=== PATIENT | male | born 2000 | race Caucasian/White ===

== ENCOUNTER 2020-05-29 09:32 | Emergency (ER) | payer BC, OTHER ==
[2020-05-29 09:41] VITALS: BP 121/67; PULSE 98; RESP 18; TEMP 98
[2020-05-29] MEDS ORDERED: IBUPROFEN 600 MG STARTER PACK 4 TAB BTL PO STA (10:25)
[2020-05-29] MEDS ORDERED: PENICILLIN VK 500MG STARTER 4 TAB BTL PO STA (10:25)
--- NOTE | 2020-05-29 10:27 | ED ---
General Adult HPI - General Source: patient Mode of arrival: ambulatory Limitations: no limitations <Isela Ocampo - Last Filed: 05/29/20 11:53> <Dawna Vasquez - Last Filed: 06/04/20 23:39> - General Chief complaint: Dental/Oral Stated complaint: dental pain Time Seen by Provider: 05/29/20 10:14 - History of Present Illness Initial comments: 19-year-old male patient presents to the emergency department today for evaluation of left upper dental pain. Patient states the symptoms started about a year ago. States he's had persistent left upper dental pain occasional bleeding from the gums around the tooth, and on-and-off facial swelling. Denies any current facial swelling. Has not seen a dentist for this. States that he was discussing with a coworker and they talked about possible dental abscess so he thought he should come get checked out for it. He denies any fever or chills. Denies nausea or vomiting. Denies any trismus or difficulty swallowing. (Isela Ocampo) - Related Data Previous Rx's Medication Instructions Recorded Penicillin V Potassium [Pen Vee K] 500 mg PO Q6H #40 tablet 05/29/20 Allergies Allergy/AdvReac Type Severity Reaction Status Date / Time No Known Allergies Allergy Verified 05/29/20 09:39 Review of Systems ROS Other: All systems not noted in ROS Statement are negative. <Isela Ocampo - Last Filed: 05/29/20 11:53> ROS Other: All systems not noted in ROS Statement are negative. <Dawna Vasquez - Last Filed: 06/04/20 23:39> ROS Statement: Those systems with pertinent positive or pertinent negative responses have been documented in the HPI. Past Medical History Past Medical History: No Reported History History of Any Multi-Drug Resistant Organisms: None Reported Past Surgical History: No Surgical Hx Reported Past Psychological History: PTSD Smoking Status: Vaper Past Alcohol Use History: None Reported Past Drug Use History: Marijuana <Isela Ocampo - Last Filed: 05/29/20 11:53> General Exam Limitations: no limitations General appearance: alert, in no apparent distress, other (Physical well- developed, well-nourished adult male patient in no acute distress. Vital signs upon presentation are temperature 98.0F, pulse 98, respirations 18, blood pressure 121/67, pulse ox 99% on room air.) ENT exam: Present: mucous membranes moist, other (There is cracked tooth #15. Surrounding gingival erythema. No evidence for drainable abscess.) Neck exam: Present: normal inspection. Absent: tenderness, meningismus, lymphadenopathy Respiratory exam: Present: normal lung sounds bilaterally. Absent: respiratory distress, wheezes, rales, rhonchi, stridor Cardiovascular Exam: Present: regular rate, normal rhythm, normal heart sounds. Absent: systolic murmur, diastolic murmur, rubs, gallop, clicks Neurological exam: Present: alert, oriented X3, CN II-XII intact Psychiatric exam: Present: normal affect, normal mood Skin exam: Present: warm, dry, intact, normal color. Absent: rash <Isela Ocampo - Last Filed: 05/29/20 11:53> Course Vital Signs 05/29/20 09:39 Temperature 98 F Pulse Rate 98 Respiratory 18 Rate Blood Pressure 121/67 O2 Sat by Pulse 99 Oximetry Medical Decision Making <Isela Ocampo - Last Filed: 05/29/20 11:53> <Dawna Vasquez - Last Filed: 06/04/20 23:39> - Medical Decision Making 19-year-old male patient presents to the emergency department today for evaluation of left upper dental pain. Physical examination did reveal cracked tooth #15 with surrounding gingival erythema and hyperplasia. Afebrile normal vitals. We'll give antibiotics for possible infection. Patient given PENVK due to having no insurance, this is free at [facility]. He is instructed follow up with dentistry as soon as possible. Return parameters were discussed in detail. He verbalizes understanding and agrees with this plan. Case discussed with Dr. Vasquez. (Isela Ocampo) I was available for consultation in the emergency department. The history and physical exam were done by the midlevel provider. I was consulted for this patients care. I reviewed the case with the midlevel provider and based on their presentation of the patient, I agree with the assessment, medical decision making and plan of care as documented. Chart was dictated using [employer] dictation software. Attempts were made to correct any dictation errors however some typographical errors may persist. (Dawna Vasquez) Disposition Is patient prescribed a controlled substance at d/c from ED?: No Time of Disposition: 10:27 <Isela Ocampo - Last Filed: 05/29/20 11:53> <Dawna Vasquez - Last Filed: 06/04/20 23:39> Clinical Impression: Pain, dental Disposition: HOME SELF-CARE Condition: Good Instructions (If sedation given, give patient instructions): Toothache (ED) Additional Instructions: All the dentist for recheck as soon as possible. Return to the emergency department for any new, worsening, or concerning symptoms. Please follow up with the [facility] dental clinic. [id number] [place] [address]. Phone number for new patients or [phone] for existing patients. [facility]. Must pay for x-rays then services are free. Call for an appoitnment. Prescriptions: Penicillin V Potassium [Pen Vee K] 500 mg PO Q6H #40 tablet Referrals: None,Stated [Primary Care Provider] - 1-2 days
== END 2020-05-29 10:43 | disposition home or self-care (01) ==
LOC: EC 09:32
DX: K08.89 Other specified disorders of teeth and supporting structures (principal); F17.200 Nicotine dependence, unspecified, uncomplicated
CPT/HCPCS: 99282

== ENCOUNTER 2020-06-06 13:32 | Emergency (ER) | payer OTHER ==
[2020-06-06 14:30] VITALS: TEMP 98.3
[2020-06-06 16:09] LABS: Appearance,Urine Clear (Clear); Basophils % (A) 0 %; Bilirubin,Urine Negative (Negative); Blood,Urine Negative (Negative); Color,Urine Light Yellow; Eosinophils # (A) 0.2 k/uL (0-0.7); Eosinophils % (A) 3 %; Glucose,Urine (UA) Negative (Negative); HCT 42.9 % (39.0-53.0); HGB 14.6 gm/dL (13.0-17.5); Ketones,Urine Negative (Negative); Leukocyte Esterase,Urine Negative (Negative); Lymphocytes # (A) 2.2 k/uL (1.0-4.8); Lymphocytes % (A) 29 %; MCH 30.1 pg (25.0-35.0); MCV 88.7 fL (80.0-100.0); Mean Platelet Volume 6.4; Monocytes # (A) 0.4 k/uL (0-1.0); Monocytes % (A) 6 %; Neutrophils # (A) 4.6 k/uL (1.3-7.7); Neutrophils % (A) 61 %; Nitrite,Urine Negative (Negative); Platelet Count 274 k/uL (150-450); Protein,Urine Negative (Negative); RBC 4.84 m/uL (4.30-5.90); RDW 12.4 % (11.5-15.5); Specific Gravity,Urine 1.019 (1.001-1.035); Urobilinogen,Urine <2.0 mg/dL (<2.0); WBC 7.5 k/uL (4.0-11.0)
[2020-06-06 16:18] LABS: ALT 14 U/L (4-49); AST 22 U/L (17-59); African American GFR (CKD) >90 (>60 ml/min/1.73 sqM); Alkaline Phosphatase 58 U/L (38-126); Amylase 47 U/L (30-110); Anion Gap 9 mmol/L; Blood Urea Nitrogen 15 mg/dL (9-20); Calcium 9.7 mg/dL (8.4-10.2); Carbon Dioxide 26 mmol/L (22-30); Chloride 104 mmol/L (98-107); Glucose 93 mg/dL (74-99); Lipase 38 U/L (23-300); Non-African American GFR(CKD) >90 (>60 ml/min/1.73 sqM); Potassium 4.3 mmol/L (3.5-5.1); Sodium 139 mmol/L (137-145); Total Bilirubin 0.6 mg/dL (0.2-1.3); Total Protein 7.6 g/dL (6.3-8.2)
--- NOTE | 2020-06-06 16:37 | US ---
EXAMINATION TYPE: US scrotum with doppler. DATE OF EXAM: 06/06/2020 COMPARISON: NONE CLINICAL HISTORY: 19-year-old male left testicular pain. Lower abdomen pain and left testicular pain x 1 day following heavy lifting TECHNIQUE: Grayscale and color Doppler Duplex imaging performed of the scrotum. FINDINGS: EXAM MEASUREMENTS: TESTICLES: Right Testicle: 4.1 x 2.2 x 2.7 cm Left Testicle: 4.5 x 2.1 x 2.8 cm Normal homogeneous appearance to the testicles. No hyperemia. Doppler performed to assess for testicu lar vascularity; good bilateral color flow and waveforms are seen. There is no evidence of testicul ar torsion. EPIDIDYMIS HEAD: Right Epididymis: 1.1 cm Left Epididymis: 1.3 cm Presence of hydroceles: no Presence of varicoceles: prominent vessels medial and superior to left testicle that increased with valsalva IMPRESSION: 1. No sonographic evidence for testicular torsion or epididymoorchitis. 2. No hydrocele. 3. Exam positive for left-sided scrotal varicoceles.
--- NOTE | 2020-06-06 16:38 | US ---
EXAMINATION TYPE: US groin LT DATE OF EXAM: 06/06/2020 COMPARISON: NONE CLINICAL HISTORY: 19-year-old male pain. Lower abdomen and left testicular pain x 1 day following hea vy lifting TECHNIQUE: Multiple sonographic images of the bilateral inguinal regions. FINDINGS: [employer]ESS[employer] NOTES: Left groin: appears wnl Right groin: appears wnl IMPRESSION: No specific abnormality identified within either inguinal region.
--- NOTE | 2020-06-06 17:41 | CT ---
EXAMINATION TYPE: CT abdomen pelvis w con DATE OF EXAM: 06/06/2020 COMPARISON: None HISTORY: PERIUMBILICAL PAIN, S/P LIFTING HERNIA, CAN BE FELT. CT DLP: 694.7 mGycm Automated exposure control for dose reduction was used. CONTRAST: Performed with IV Contrast, patient injected with 100 mL of Isovue 300. Lung bases are clear. There is no pleural effusion. Heart size is normal. There is no pericardial eff usion. Liver spleen stomach pancreas gallbladder appear normal. Bile ducts are not dilated. There is no adre nal mass. Kidneys show satisfactory contrast opacification. There is no hydronephrosis. Ureters are n ot dilated. Delayed images show normal renal excretion. There is no retroperitoneal adenopathy. Appen bruce is posterior and appears normal. Bladder distends smoothly. There is no inguinal hernia. There is no free fluid in the pelvis. Anterior abdominal wall musculature appears normal. There is no mesenteric edema. There is no ascites or free air. There is no bowel obstruction. The lumbar vertebra have normal spacing and alignment. Posterior elements are intact. There is no com pression fracture. The bony pelvis is intact. Hip joints are intact. IMPRESSION: Negative CT scan abdomen and pelvis. No evidence of abdominal wall hernia. No inguinal hernia. No lulu dence of umbilical hernia.
--- NOTE | 2020-06-06 18:00 | ED ---
Male Urogenital HPI - General Chief complaint: Urogenital Stated complaint: abdominal pain Time Seen by Provider: 06/06/20 15:18 Source: patient Mode of arrival: ambulatory Limitations: no limitations - History of Present Illness Initial comments: 19-year-old male presenting today for chief complaint of abdominal, left sided testicular pain. Patient states that he lifted something "heavy at work", patient due to please of boxes over 50 pounds. Patient denies falls or direct trauma. He denies any back pain but states he had pain near his belly button as well as his left testicle. Patient states as a pulling and at times sharp pain. He states that he has not had any diarrhea or constipation nausea or vomiting. He denies any fevers. Patient denies any pain prior to lifting. Patient denies a history of known hernias. Patient denies severe testicular pain or swelling. Patient has no additional concerns upn arrival he appears well nontoxic in no acute distress. - Related Data Home Medications Medication Instructions Recorded Confirmed No Known Home Medications 06/06/20 06/06/20 Allergies Allergy/AdvReac Type Severity Reaction Status Date / Time shellfish derived [Shellfish] Allergy Anaphylaxis Verified 06/06/20 16:49 green beans Allergy Rash/Hives Uncoded 06/06/20 16:49 Review of Systems ROS Statement: Those systems with pertinent positive or pertinent negative responses have been documented in the HPI. ROS Other: All systems not noted in ROS Statement are negative. Past Medical History Past Medical History: No Reported History History of Any Multi-Drug Resistant Organisms: None Reported Past Surgical History: No Surgical Hx Reported Past Psychological History: PTSD Smoking Status: Vaper Past Alcohol Use History: None Reported Past Drug Use History: Marijuana General Exam - General Exam Comments Initial Comments: General: The patient is awake and alert, in no distress Eye: +3 mm pupils are equal, round and reactive to light, extra-ocular movements are intact. No nystagmus. There is normal conjunctiva bilaterally. No signs of icterus. Ears, nose, mouth and throat: There are moist mucous membranes and no oral lesions. Neck: The neck is supple, there is no tenderness or JVD. Cardiovascular: There is a regular rate and rhythm. No murmur, rub or gallop is appreciated. Respiratory: Lungs are clear to auscultation, respirations are non-labored, breath sounds are equal. No wheezes, stridor, rales, or rhonchi. Gastrointestinal: No obvious ventral hernia when patient lives head nor on palpation of the umbilicus or the ventral abdomen. With turn and cough there is no direct or indirect hernia of the left or right side. cremesteric reflux intact. no testicular swelling. no blue dot. no redness or epididymal pain Soft, non-distended, non-tender abdomen without masses or organomegaly noted. There is no rebound or guarding present. Musculoskeletal: Normal ROM, no tenderness. Strength 5/5. Sensation intact. Radial pulses equal bilaterally 2+. Neurological: A&O x 3. CN II-XII intact grossly, There are no obvious motor or sensory deficits. Coordination appears grossly intact. Speech is normal. Skin: Skin is warm and dry and no rashes or lesions are noted. Psychiatric: Cooperative, appropriate mood & affect, normal judgment. Limitations: no limitations Course Vital Signs 06/06/20 06/06/20 14:26 18:27 Temperature 98.3 F Pulse Rate 62 55 L Respiratory 18 16 Rate Blood Pressure 122/65 133/75 O2 Sat by Pulse 100 98 Oximetry Medical Decision Making - Medical Decision Making Labs stable. US (-) aside from left sided varicolcele. no hernia on PE. Patient lactic acid WNL. Patient CT abdomen pelvic no appendicitis. No acute process. Patient UA unremarkable. Patient has no additional complaints. At this time after discussing case with Moon Vasquez we feel pt is stable for discharge with PCP and urology f/u. Patient is agreeable to care plan and discharge. Recommend rest, and possibility of this being small hernia vs abdominal strain. to return to ER for worsening pain, vomiting/constipation. - Lab Data Result diagrams: 06/06/20 15:59 06/06/20 15:59 Lab Results 06/06/20 06/06/20 06/06/20 Range/Units 15:59 15:59 15:59 WBC 7.5 (4.0-11.0) k/uL RBC 4.84 (4.30-5.90) m/uL Hgb 14.6 (13.0-17.5) gm/dL Hct 42.9 (39.0-53.0) % MCV 88.7 (80.0-100.0) fL MCH 30.1 (25.0-35.0) pg MCHC 34.0 (31.0-37.0) g/dL RDW 12.4 (11.5-15.5) % Plt Count 274 (150-450) k/uL MPV 6.4 Neutrophils % 61 % Lymphocytes % 29 % Monocytes % 6 % Eosinophils % 3 % Basophils % 0 % Neutrophils # 4.6 (1.3-7.7) k/uL Lymphocytes # 2.2 (1.0-4.8) k/uL Monocytes # 0.4 (0-1.0) k/uL Eosinophils # 0.2 (0-0.7) k/uL Basophils # 0.0 (0-0.2) k/uL Sodium 139 (137-145) mmol/L Potassium 4.3 (3.5-5.1) mmol/L Chloride 104 (98-107) mmol/L Carbon Dioxide 26 (22-30) mmol/L Anion Gap 9 mmol/L BUN 15 (9-20) mg/dL Creatinine 0.86 (0.66-1.25) mg/dL Est GFR (CKD-EPI)AfAm >90 (>60 ml/min/1.73 sqM) Est GFR (CKD-EPI)NonAf >90 (>60 ml/min/1.73 sqM) Glucose 93 (74-99) mg/dL Plasma Lactic Acid Rico (0.7-2.0) mmol/L Calcium 9.7 (8.4-10.2) mg/dL Total Bilirubin 0.6 (0.2-1.3) mg/dL AST 22 (17-59) U/L ALT 14 (4-49) U/L Alkaline Phosphatase 58 (38-126) U/L Total Protein 7.6 (6.3-8.2) g/dL Albumin 5.0 (3.5-5.0) g/dL Amylase 47 (30-110) U/L Lipase 38 (23-300) U/L Urine Color Light Yellow Urine Appearance Clear (Clear) Urine pH 7.0 (5.0-8.0) Ur Specific [place] 1.019 (1.001-1.035) Urine Protein Negative (Negative) Urine Glucose (UA) Negative (Negative) Urine Ketones Negative (Negative) Urine Blood Negative (Negative) Urine Nitrite Negative (Negative) Urine Bilirubin Negative (Negative) Urine Urobilinogen <2.0 (<2.0) mg/dL Ur Leukocyte Esterase Negative (Negative) 06/06/20 Range/Units 15:59 WBC (4.0-11.0) k/uL RBC (4.30-5.90) m/uL Hgb (13.0-17.5) gm/dL Hct (39.0-53.0) % MCV (80.0-100.0) fL MCH (25.0-35.0) pg MCHC (31.0-37.0) g/dL RDW (11.5-15.5) % Plt Count (150-450) k/uL MPV Neutrophils % % Lymphocytes % % Monocytes % % Eosinophils % % Basophils % % Neutrophils # (1.3-7.7) k/uL Lymphocytes # (1.0-4.8) k/uL Monocytes # (0-1.0) k/uL Eosinophils # (0-0.7) k/uL Basophils # (0-0.2) k/uL Sodium (137-145) mmol/L Potassium (3.5-5.1) mmol/L Chloride (98-107) mmol/L Carbon Dioxide (22-30) mmol/L Anion Gap mmol/L BUN (9-20) mg/dL Creatinine (0.66-1.25) mg/dL Est GFR (CKD-EPI)AfAm (>60 ml/min/1.73 sqM) Est GFR (CKD-EPI)NonAf (>60 ml/min/1.73 sqM) Glucose (74-99) mg/dL Plasma Lactic Acid Rico 0.9 (0.7-2.0) mmol/L Calcium (8.4-10.2) mg/dL Total Bilirubin (0.2-1.3) mg/dL AST (17-59) U/L ALT (4-49) U/L Alkaline Phosphatase (38-126) U/L Total Protein (6.3-8.2) g/dL Albumin (3.5-5.0) g/dL Amylase (30-110) U/L Lipase (23-300) U/L Urine Color Urine Appearance (Clear) Urine pH (5.0-8.0) Ur Specific [place] (1.001-1.035) Urine Protein (Negative) Urine Glucose (UA) (Negative) Urine Ketones (Negative) Urine Blood (Negative) Urine Nitrite (Negative) Urine Bilirubin (Negative) Urine Urobilinogen (<2.0) mg/dL Ur Leukocyte Esterase (Negative) Disposition Clinical Impression: Varicocele, Testicular pain, left, Abdominal pain, Abdominal wall strain Disposition: HOME SELF-CARE Condition: Good Instructions (If sedation given, give patient instructions): Varicocele (ED), Abdominal Pain (ED) Is patient prescribed a controlled substance at d/c from ED?: No Referrals: None,Stated [Primary Care Provider] - 1-2 days Emile Worthington MD [STAFF PHYSICIAN] - 1-2 days Time of Disposition: 17:58
[2020-06-06 18:28] VITALS: BP 133/75; PULSE 55; RESP 16
== END 2020-06-06 18:28 | disposition home or self-care (01) ==
LOC: EC 13:32
DX: S39.011A Strain of muscle, fascia and tendon of abdomen, initial encounter (principal); I86.1 Scrotal varices; F17.290 Nicotine dependence, other tobacco product, uncomplicated; X50.0XXA Overexertion from strenuous movement or load, initial encounter; Y99.0 Civilian activity done for income or pay
CPT/HCPCS: 36415; 80053; 82150; 83605; 83690; 85025; 81003; 93975; 76870; 76882; 74177; 99284; Q9967

== ENCOUNTER 2021-06-05 06:14 | Emergency (ER) | payer OTHER ==
[2021-06-05 06:20] VITALS: RESP 18; TEMP 98
[2021-06-05] MEDS ORDERED: KETOROLAC 15 MG/ML 1 ML VIAL IM STA (06:52)
--- NOTE | 2021-06-05 06:52 | ED ---
General Adult HPI - General Chief complaint: Dental/Oral Stated complaint: Abcess Tooth Time Seen by Provider: 06/05/21 06:44 Source: patient, RN notes reviewed, old records reviewed Mode of arrival: ambulatory Limitations: no limitations - History of Present Illness Initial comments: Well-appearing 20-year-old male presents to the emergency room with complaints of left upper tooth pain. States has had this pain for several years and cannot afford a dentist. He states that he feels nauseated with chills but no fevers no vomiting. Patient is a daily smoker. -: year(s) (3) Location: mouth (tooth #15) Severity scale (1-10): 7 Quality: constant Consistency: constant Improves with: none Worsens with: none Associated Symptoms: nausea/vomiting (no vomiting) - Related Data Previous Rx's Medication Instructions Recorded Ibuprofen [Motrin] 600 mg PO Q8HR PRN #30 tab 06/05/21 Penicillin V Potassium [Pen Vee K] 500 mg PO QID 7 Days #28 tablet 06/05/21 Allergies Allergy/AdvReac Type Severity Reaction Status Date / Time shellfish derived [Shellfish] Allergy Anaphylaxis Verified 06/05/21 06:17 green beans Allergy Rash/Hives Uncoded 06/06/20 16:49 Review of Systems ROS Statement: Those systems with pertinent positive or pertinent negative responses have been documented in the HPI. ROS Other: All systems not noted in ROS Statement are negative. Past Medical History Past Medical History: No Reported History History of Any Multi-Drug Resistant Organisms: None Reported Past Surgical History: No Surgical Hx Reported Past Psychological History: ADD/ADHD, Anxiety, Bipolar, Depression, PTSD Smoking Status: Vaper Past Alcohol Use History: None Reported Past Drug Use History: Marijuana General Exam Limitations: no limitations General appearance: alert, in no apparent distress Eye exam: Present: normal appearance ENT exam: Present: mucous membranes moist, other (Tooth #15 fracture no evidence of abscess or erythema) Neck exam: Present: normal inspection, full ROM Respiratory exam: Present: normal lung sounds bilaterally. Absent: respiratory distress, wheezes, rales, rhonchi, stridor, chest wall tenderness, accessory muscle use Cardiovascular Exam: Present: tachycardia GI/Abdominal exam: Present: soft. Absent: distended, tenderness Back exam: Present: normal inspection, full ROM. Absent: tenderness, CVA tenderness (R), CVA tenderness (L), rash noted Neurological exam: Present: alert, oriented X3 Psychiatric exam: Present: normal affect, normal mood Skin exam: Present: warm, dry, intact, normal color Course Vital Signs 06/05/21 06:17 Temperature 98 F Pulse Rate 111 H Respiratory 18 Rate Blood Pressure 132/83 O2 Sat by Pulse 99 Oximetry Medical Decision Making - Medical Decision Making 20-year-old male presents with pain to tooth #15. He has had this pain for several years and cannot afford a dentist. There no evidence of erythema or abscess. Patient was given pain medications and antibiotics and directed to follow up with the dentist. I did explain to the patient that without resolution of this fractured tooth that the pain and risk of infection continues to be high and will not resolve. Patient was given 3 dental referrals at [facility]. Case discussed with Dr. Vasquez. Disposition Clinical Impression: Fracture of tooth, Toothache Disposition: HOME SELF-CARE Condition: Good Instructions (If sedation given, give patient instructions): Toothache (ED) Additional Instructions: Take antibiotics as prescribed and follow-up with the dentist. You can take ibuprofen as needed for pain. It is very important that you have this tooth removed as it will continue to have high risk of infection. My Replaced By [facility] [phone] [facility] [phone] [facility] [phone] Prescriptions: Ibuprofen [Motrin] 600 mg PO Q8HR PRN #30 tab PRN Reason: Pain Penicillin V Potassium [Pen Vee K] 500 mg PO QID 7 Days #28 tablet Is patient prescribed a controlled substance at d/c from ED?: No Referrals: None,Stated [Primary Care Provider] - 1-2 days Time of Disposition: 06:54
[2021-06-05 07:41] VITALS: BP 147/76; PULSE 84
== END 2021-06-05 07:40 | disposition home or self-care (01) ==
LOC: EC 06:14
DX: S02.5XXA Fracture of tooth (traumatic), initial encounter for closed fracture (principal); F90.9 Attention-deficit hyperactivity disorder, unspecified type; F41.9 Anxiety disorder, unspecified; F31.9 Bipolar disorder, unspecified; F43.10 Post-traumatic stress disorder, unspecified; F17.290 Nicotine dependence, other tobacco product, uncomplicated; F12.90 Cannabis use, unspecified, uncomplicated; X58.XXXA Exposure to other specified factors, initial encounter
CPT/HCPCS: 99282; 96372; J1885